=== PATIENT | female | born 1970 | race Caucasian/White ===

== ENCOUNTER 2018-09-08 11:44 | Emergency (ER) | payer MEDICAID, SELFPAY ==
[2018-09-08 11:45] VITALS: BP 139/81; PULSE 135; RESP 22; TEMP 36.1; O2SAT 98; BMI 28.7
--- NOTE | 2018-09-08 11:49 | ED.VISSUMM ---
- ER Visit Summary Date of Service: 09/08/18 Chief Complaint: Anxiety History of Present Illness: The patient is a 48 F who goes to the [facility]. She reports that she has a long-standing history of bipolar disorder and anxiety. She had been on Zyprexa and Klonopin in the past and that this is been helpful. States that recently she was started back on her Zyprexa and it seemed to help her straighten her thoughts out. However, she continued to be anxious. Because of that she was placed on Zoloft and has been taking this for approximately 3 weeks. She continued to have anxiety and saw her primary care physician who stopped the Zoloft and placed her on Prozac 2 days ago. Patient reports that her anxiety has been much worse since that time. Patient denies any suicidal or homicidal ideation. No auditory or visual hallucinations. Review of systems: General: No fever, chills, cold sweats. Cardiovascular: No chest pain, palpitations. Respiratory: No cough, shortness of breath, dyspnea on exertion. Gastrointestinal: No abdominal pain, nausea, vomiting, diarrhea, melena, or hematochezia. Genitourinary: No dysuria, frequency, hematuria. Skin: No rash. Neuro: No headache, numbness, weakness. Physical Examination: Vitals: Stable. Afebrile. General: Well-nourished and well-developed. Head: Normocephalic atraumatic. Neck: Supple, no lymphadenopathy. No JVD. Nontender. Cardiovascular: Tachycardic regular rhythm. No murmurs. Respiratory: No respiratory distress. Clear to auscultation bilaterally. Abdominal: Soft, nontender, nondistended, normal bowel sounds. No guarding, rebound, or peritoneal signs. Back: Nontender. Extremities: Nontender, no edema. Skin: Normal color, no rash. Neurologic: Alert and oriented ?3. Cranial nerves II through XII are intact. Normal strength and sensation. Mental status exam: Patient appears their stated age. Good posture and grooming. Good eye contact. Normal rate, volume, and latency of speech. No suicidal or homicidal ideation. No auditory or visual hallucinations. Flow of thought is logical. Insight and judgment is fair. Emergency Department Course and Treatment: Patient was given a dose of Ativan p.o. She is resting much more comfortably. Treatment Plan: Patient will be given a prescription for 8 Ativan. She is instructed to use these as needed until she is able to get back into see her doctor and have her anxiety further addressed. Return to the emergency department for any worsening symptoms. Disposition: To home in improved and stable condition. Impression: 1. Anxiety. 2. Depression. This note was generated with Giggemation software. It may contain incorrect words, spelling, and punctuation that were not noted in review of the chart prior to signing ED Disposition - Plan for ED Patient: Instructions: Anxiety Reaction Prescriptions: Lorazepam [Ativan] 1 mg PO TID PRN #8 tablet PRN Reason: Anxiety Referrals: Melinda Ness, SENIOR TALENT MANAGEMENT CONSULTANT-C [Primary Care Provider] - As soon as possible
[2018-09-08] MEDS: LORazepam 1 MG Tablet PO (12:09)
[2018-09-08 12:37] VITALS: PULSE 60
[2018-09-08 12:58] VITALS: BP 107/72; PULSE 69; RESP 18; O2SAT 99
== END 2018-09-08 12:59 | disposition home or self-care (01) ==
LOC: ED 12:13
PROVIDERS: Emergency Provider Emergency Medicine; Family Provider Nurse Practitioner Family; PCP Nurse Practitioner Family
DX: F41.9 Anxiety disorder, unspecified (principal); F32.9 Major depressive disorder, single episode, unspecified; F17.210 Nicotine dependence, cigarettes, uncomplicated
CPT/HCPCS: 99283

== ENCOUNTER 2018-09-22 15:52 | Emergency (ER) | payer MEDICAID, SELFPAY ==
[2018-09-22 15:57] VITALS: BP 121/84; PULSE 134; RESP 18; TEMP 36.6; O2SAT 98; BMI 27.3
--- NOTE | 2018-09-22 16:22 | NURSING ---
CALLED CRISIS, LEFT MESSAGE WITH ANSWERING NAME
[2018-09-22] MEDS: LORazepam 1 MG Tablet PO (16:31)
--- NOTE | 2018-09-22 17:11 | ED.VIS.GEN ---
History of Present Illness Chief Complaint: Anxiety Informant: Patient Onset: Month(s) Context: Gradual Onset Timing: Waxes and wanes Current Severity: Moderate Maximum Severity: Moderate Narrative: Patient has a history of bipolar disorder. It sounds like she been off of her medication for quite some time. Her doctor at the [facility] has been trying to restart medication that had worked for her previously. This did not work and she was switched to Prozac. Patient was seen here in late August due to continued anxiety. She was given a short course of Ativan to help with her symptoms. This lasted her for 5 days but she is been out of that medication for over a week. She states that her PCP increased her dose of Prozac and wanted her to be seen by a psychiatrist. She has not yet made an appointment and did not know if [facility] was making the apartment for her or not. She presents today with increased anxiety. She went to work today but was not able to complete her job and was brought in. Patient denies suicidal ideation. Past Medical History - Allergies and Home Meds Allergies/Adverse Reactions: Allergies No Known Allergies Allergy (Verified 09/22/18 15:53) Primary Care Physician: Melinda Ness NP-C [Primary Care Provider] - Prior records reviewed: Yes Past Medical History: - - Reviewed Surgical History: - - C-sections Lives: With Family Smoking Status: Current every day smoker Review of Systems General: Denies: Chills, Fever Eyes: Denies: Visual changes - bilaterally ENT: Denies: Bilateral ear pain Cardiovascular: Denies: Chest pain Respiratory: Denies: Dyspnea Gastrointestinal: Denies: Abdominal pain, Nausea, Vomiting Genitourinary: Denies: Dysuria Musculoskeletal: Denies: Myalgias Neurological: Denies: Headache Psych: Reports: Anxiety. Denies: Suicidal thoughts, Suicidal ideations Hematologic: Denies: Easy bruising Allergy: Denies: Uticaria Physical Exam Vital Signs/Narrative: Vital Signs Temp Pulse Resp BP Pulse Ox 09/22/18 15:57 97.9 F 134 H 18 121/84 H 98 Inital Vital Signs reviewed: Yes General: Well nourished, Well developed Head: Normocephalic ENT: Moist mucous membranes Neck: Supple Cardiovascular: Tachycardia Respiratory: No distress, CTA bilaterally Abdomen: Soft, Nontender Back: Nontender Extremities: Nontender Skin: Normal color Neurological: Alert, Oriented x3 Psychological: Normal affect Diagnostic/Tx/Re-eval - Medical Decision Making Patient was given 1 mg of p.o. Ativan. On repeat evaluation she is resting comfortably. Heart rate is 74. I spoke with Arabella from the counseling center. She was able to make an appointment for the patient tomorrow morning at 9:30 with Rhonda. Patient is agreeable to this. ED Disposition - Plan for ED Patient: Disposition: Home or Assisted Living Instructions: Anxiety Reaction Prescriptions: Lorazepam [Ativan] 1 mg PO TID PRN #10 tablet PRN Reason: Anxiety Referrals: Counseling,Center [GROUP OF PHYSICIANS] - 09/23/18 9:30 am Additional Instructions: You have an appointment tomorrow morning at the counseling center - 9:30 with Rhonda.
== END 2018-09-22 17:27 | disposition home or self-care (01) ==
PROVIDERS: Emergency Provider Emergency Medicine; Family Provider Nurse Practitioner Family; PCP Nurse Practitioner Family
DX: F41.9 Anxiety disorder, unspecified (principal); F31.9 Bipolar disorder, unspecified; F17.200 Nicotine dependence, unspecified, uncomplicated
CPT/HCPCS: 99283

== ENCOUNTER 2019-07-23 11:50 | Emergency (ER) | payer MEDICAID, SELFPAY ==
[2019-07-23 11:51] VITALS: BP 120/74; PULSE 89; RESP 18; TEMP 36.8; O2SAT 99; BMI 30.9
--- NOTE | 2019-07-23 12:57 | ED.DCSUM_ITS ---
- ER Visit Summary Date of Service: 07/23/19 Chief Complaint: Neck and back pain History of Present Illness: The patient is a 49 F who presents with neck and back pain that began yesterday. Patient states the pain is worse today. Patient describes the pain is sharp. Patient states the pain is over the right lower cervical paraspinal area and right upper thoracic paraspinal area. Patient denies any trauma or injury. Patient states the pain gets somewhat better with ice. Patient states the pain is worse with certain movements. Patient admits to some intermittent paresthesias down her right arm. Patient denies any weakness. Patient states she has a history of bone spurs in her neck. Physical Examination: Vital signs are stable. Patient is afebrile. Patient is in no acute distress. Musculoskeletal exam reveals tenderness and spasm of the right lower cervical paraspinal muscles and right upper thoracic paraspinal muscles as well as the right trapezius muscle. There is no midline tenderness. There is no bony crepitance or step-off. Range of motion was slightly limited in all motions of the cervical spine secondary to pain. Strength is 5/5 bilaterally in the upper extremities. There are no sensory deficits noted. There is good range of motion of the right shoulder. Radial pulses are equal bilaterally. Emergency Department Course and Treatment: Patient was given injections of Toradol and Norflex here. Patient was given prescriptions for Naprosyn and Flexeril. Patient was instructed to use ice to the area. Patient was instructed to follow-up with her primary care physician in 5 to 7 days. Patient understood and was agreeable with the plan. All questions were answered. Disposition: Discharge home Impression: 1. Acute cervical strain This note was generated with NavigatorMD dictation software. It may contain incorrect words, spelling, and punctuation that were not noted in review of the chart prior to signing ED Disposition - Plan for ED Patient: Disposition: Home or Assisted Living Diagnosis: Acute cervical myofascial strain Instructions: ED Sprain Strain Neck Prescriptions: cycloBENZAPRine HCl [Flexeril] 10 mg PO QHS PRN PRN #10 tab PRN Reason: Muscle Spasm Prescription Printed Naproxen [Naprosyn] 500 mg PO BID PRN #20 tab Prescription Printed Referrals: Melinda Ness, BENJAMIN-C [Primary Care Provider] - 5-7 Days
[2019-07-23] MEDS: Orphenadrine 60 MG/2 ML Ampul IM (13:16)
[2019-07-23] MEDS: Ketorolac 60 MG/2 ML Vial IM (13:17)
[2019-07-23 13:26] VITALS: BP 126/78; PULSE 88; RESP 14; O2SAT 98
== END 2019-07-23 13:27 | disposition home or self-care (01) ==
LOC: ED 13:17
PROVIDERS: Emergency Provider Emergency Medicine; PCP Nurse Practitioner Family
DX: S16.1XXA Strain of muscle, fascia and tendon at neck level, initial encounter (principal); X58.XXXA Exposure to other specified factors, initial encounter; Y92.9 Unspecified place or not applicable; Y99.9 Unspecified external cause status; F17.210 Nicotine dependence, cigarettes, uncomplicated; F31.9 Bipolar disorder, unspecified
CPT/HCPCS: 96372; 99283

== ENCOUNTER → 2019-11-17 13:04 | Outpatient (CLI) | payer MEDICAID, SELFPAY ==
--- NOTE | 2019-11-17 13:06 | RAD_ITS ---
STUDY: X-RAY - PELVIS AND LEFT HIP REASON FOR EXAM: Female, 49 years old. Left lateral hip pain x months -- NKI TECHNIQUE: 3 views of the pelvis and hip. COMPARISON: None. FINDINGS: There is a non-specific bowel gas pattern. Normal visualized soft tissue structures. Normal bilateral iliac wings, sacroiliac joints and visualized sacrum. Normal bilateral superior and inferior pubic rami. Normal pubic symphysis. Normal bilateral ischial tuberosities. Degenerative spur. Normal acetabulum. is severe articular joint space narrowing of the hip. RAD/HIP, UNI W/ Pelvis 2-3 Views IMPRESSION: Marked degree of joint space narrowing involving the left hip joint. Moderate degree of joint space narrowing of the right hip joint. Electronically Signed: Levon Cutler, at 15:54 EDT , Service support ,
== END ==
PROVIDERS: PCP Nurse Practitioner Family; Referring Provider Nurse Practitioner Family; Visit Provider Nurse Practitioner Family
DX: M25.552 Pain in left hip (principal)
CPT/HCPCS: 73502

== ENCOUNTER → 2020-06-08 10:01 | Outpatient (CLI) | payer MEDICAID, SELFPAY ==
[2019-12-08 13:57] VITALS: BMI 33.4
--- NOTE | 2020-06-08 10:17 | RAD_ITS ---
STUDY: X-RAY CHEST REASON FOR EXAM: Female, 49 years old. NICOTINE DEPENDENCE TECHNIQUE: PA and lateral views of the chest. COMPARISON: None. FINDINGS: The lungs are clear and expanded. There is no demonstrated pleural abnormality. Normal size heart. Normal mediastinum and [place]. Normal visualized pulmonary arteries. Normal visualized aortic arch and descending thoracic aorta. Normal visualized thoracic spine. Normal visualized ribs, clavicles, and shoulders. There is no demonstrated abnormality of the visualized soft tissue structures of the upper abdomen. RAD/Chest PA and Lateral IMPRESSION: No evidence of acute cardiopulmonary process. Electronically Signed: Junior Garg DO at 1:08 EDT , Service support ,
[2020-06-08 11:44] LABS: Absolute Lymphocyte Count 3.51 X10^3/uL (0.83-4.51); Basophil% 0.8 % (0-1); Eosinophil# 0.22 X10^3/uL; Eosinophils% 1.7 % (0-5); Hematocrit 47.1 % (37-47); Hemoglobin 15.2 g/dL (12.0-15.0); Lymphocyte # 3.51 X10^3/ul (0.83-4.51); Lymphocyte % 27.7 % (19-41); Mean Corp Hgb Conc 32.3 g/dL (32-36); Mean Corpuscular Volume 96.1 fL (81-99); Mean Platelet Vol. 11.5 fl (6.2-12.0); Monocyte# 0.81 X10^3/uL; Monocyte% 6.4 % (0-10); NRBC Flagged by Analyzer 0 % (0-5); Neutrophil # 7.96 X10^3/uL (2.7-7.7); Neutrophil % 62.8 % (47-70); Platelet Count 336 K/mm3 (150-450); RBC Distribution Width CV 12.7 % (11.6-14.6); White Blood Count 12.7 K/mm3 (4.4-11.0)
[2020-06-08 12:32] LABS: ALB/GLOB Ratio 1.1 RATIO (0.9-2.4); AST(SGOT) 11 U/L (15-37); Alanine Aminotransfer ALT/SGPT 31 U/L (13-56); Albumin, Serum 3.8 g/dL (3.2-5.0); Alkaline Phosphatase 109 U/L (45-117); Anion Gap 5 (5-15); BUN 17 mg/dL (7-18); BUN/Creat Ratio 19.3 RATIO (10-20); Calcium,Total 9.3 mg/dL (8.5-10.1); Chloride 102 mmol/L (98-107); Cholesterol 199 mg/dL (200); Creatinine, Serum 0.88 mg/dL (0.55-1.02); EST Glomerular Filtration Rate 72 mL/min (>60); Est Glom Filt Rate - Afr Amer 87 mL/min (>60); Globulin 3.5 g/dL (2.2-4.2); Glucose 112 mg/dL (74-106); High Density Lipoprotein 66 mg/dL; Potassium 3.8 mmol/L (3.5-5.1); Protein, Total 7.3 g/dL (6.4-8.2); Sodium Level 140 mmol/L (136-145); Thyroid Stim Hormone (TSH) 2.83 uIU/mL (0.358-3.74); Triglycerides 116 mg/dL; Very Low Density Lipoprotein 23 mg/dL (5-40)
[2020-06-10 17:01] LABS: Vitamin D 1,25-Dihydroxy 34.4 pg/mL (19.9-79.3)
== END ==
LOC: LAB 10:10 → RAD 10:15
DX: F17.200 Nicotine dependence, unspecified, uncomplicated (principal)
CPT/HCPCS: 36415; 71046; 80053; 80061; 82652; 84443; 85025

== ENCOUNTER → 2020-11-23 15:12 | Outpatient (CLI) | payer MEDICAID, SELFPAY ==
--- NOTE | 2020-11-23 15:17 | BI_ITS ---
MAMMOGRAPHY - BILATERAL SCREENING 3-D TOMOSYNTHESIS REASON FOR EXAM: Female, 50 years old. SCREENING PERTINENT HISTORY: No significant family history. TECHNIQUE: 2-D mammograms and 3-D Tomosynthesis of the breast (s) were performed. CAD was performed. COMPARISON: None. FINDINGS: The breast composition is heterogeneously dense that can obscure small breast masses. Scattered benign calcifications are seen. No dominant mass. No suspicious calcifications right breast. Grouped punctate calcifications in the upper outer quadrant left breast and magnification views are recommended.. No architectural distortion is identified. There is no skin thickening or retraction. BI/SCRN MAMM (CAD)W/COOKIE BILAT IMPRESSION: Grouped punctate calcifications upper outer quadrant of the left breast and magnification views recommended for further evaluation.. ASSESSMENT CATEGORY: BIRADS Category 0: Incomplete. Need additional imaging evaluation as above. A letter regarding these results will be sent to the patient by the facility within 30 days. FOLLOW UP RECOMMENDATION: Additional imaging recommended as above. (E) Approximately 10% of breast cancers are not detected by mammography. A normal mammogram should not delay biopsy of a clinically suspicious abnormality. Electronically Signed: Azar Strickland MD at 12:16 EDT Tel , Service support ,
--- NOTE | 2020-11-23 15:22 | BD_ITS ---
STUDY: DUAL ENERGY X-RAY ABSORPTIOMETRY / DXA REASON FOR EXAM: Female, 50 years old. 733.00OsteoporosisBONE DENSITY REASON FOR EXAM TECHNIQUE: Bone Mineral Density (BMD) measurements of lumbar spine and bilateral hips were obtained. COMPARISON: None. FINDINGS: Lumbar Spine (L1-L4): g/cm2 (1.008) / T-score (-0.4) / Z-score (0.5) Findings are suggestive of normal bone density with a low fracture risk. Left Femur Total: g/cm2 (0.810) / T-score (-1.1) / Z-score (-0.5) Left Femoral Neck: g/cm2 (0.746) / T-score (-0.9) / Z-score (0.0) Right Femur Total: g/cm2 (0.901) / T-score (-0.3) / Z-score (0.2) Right Femoral Neck: g/cm2 (0.781) / T-score (-0.6) / Z-score (0.3) BD/Dexa Bone Density Study IMPRESSION: The patient is considered osteopenic as outlined below according to World Ghanshyam Organization (WHO) criteria with a low fracture risk. Reference Information: The T-score is the number of standard deviations above or below the standard which is normal for young adults at their peak bone mineral density. The World Health Organization (WHO) interprets the T-scores as follows: Above -1 Normal bone density Between -1 and -2.5 Osteopenia Equal to / or below -2.5 Osteoporosis As a practical clinical guideline, osteopenia may be graded as follows: Mild -1 through -1.5 Moderate -1.6 through -2.0 Severe -2.1 through -2.4 The Z-score is the number of standard deviations above or below age-matched controls. A Z-score of less than -1.5 would be considered abnormal. References: 1. NIH Osteoporosis and Related Bone Diseases www osteo.org 2. International Society for Clinical Densitometry www iscd.org 3. National Osteoporosis Foundation www nof.org Electronically Signed: Levon Cutler MD at 15:26 EDT , Service support ,
== END ==
PROVIDERS: Referring Provider Nurse Practitioner Adult Health; Visit Provider Nurse Practitioner Adult Health
DX: Z12.31 Encounter for screening mammogram for malignant neoplasm of breast (principal); Z13.820 Encounter for screening for osteoporosis
CPT/HCPCS: 77063; 77067; 77080

== ENCOUNTER 2020-11-24 17:58 | Emergency (ER) | payer MEDICAID, SELFPAY ==
[2020-11-24 17:59] VITALS: BP 133/106; PULSE 116; RESP 20; TEMP 36.7; O2SAT 96; BMI 38.0
--- NOTE | 2020-11-24 18:42 | ED.VIS.LOWEX ---
HPI History of Present Illness HPI Narrative: Patient presents with left hip pain that has been constant for the past year. Patient states it is gotten worse over the last 2 weeks. Patient denies any specific trauma or injury. Patient states she has some arthritis in that hip and needs a hip replacement. Patient states she is waiting on insurance to approve procedures for her left hip. Patient denies any paresthesias or weakness. Patient denies any other injuries. Chief Complaint: Lower Extremity Injury Informant: patient Onset/Context/Timing Onset: Weeks (Worse over the last 2 weeks) and - (1 year) Context: Gradual Onset Timing: Continuous Quality of Pain: Sharp and Aching Worsened by: Movement Relieved by: Stretching Associated Symptoms Associated Symptoms: Positive for Weakness; Negative for Parasthesia and Loss of Funtion PFSH PFSH Medical History Bipolar 1 disorder Home Medications olanzapine 15 mg PO DAILY 07/23/19 [History Last Taken Unknown] lamotrigine 100 mg tablet 100 mg PO DAILY tab 07/23/20 [History Last Taken Unknown] diclofenac sodium 75 mg tablet,delayed release 75 mg PO BID tab 10/27/20 [History Last Taken Unknown] methylprednisolone 4 mg tablets in a dose pack See Rx Instructions PO PER PKG DIR #21 tab 10/27/20 [Rx Last Taken Unknown] tramadol 50 mg PO Q4H PRN PRN 3 Days #20 tab 11/24/20 [Rx Last Taken Unknown] Allergy/AdvReac Type Severity Reaction Status Date / Time No Known Allergies Allergy Verified 10/27/20 13:04 Surgical History H/O: Social History Smoking Status: Current every day smoker tobacco type: cigarettes alcohol intake: never ROS ROS ED Constitutional Constitutional ED: Denies chills or fever(s) Eyes Eyes: Denies blurry vision or change in vision ENT ENT ED: Denies rhinorrhea or sore throat Cardiovascular Cardiovascular: Denies chest pain or palpitations Respiratory/Chest Respiratory/Chest: Denies cough or dyspnea Gastrointestinal Gastrointestinal: Denies nausea or vomiting Genitourinary Genitourinary ED: Denies dysuria or hematuria Musculoskeletal Musculoskeletal: Denies back pain or neck pain Integumentary Denies abscess or rash Neurologic Neurologic: Denies headache(s) or weakness Allergic/Immunologic Allergic/Immunologic ED: Denies mouth swelling or urticaria EXAM Physical Exam Const Vital Signs: 11/24/20 17:59 Temperature 98.1 F Temperature Source Temporal Pulse Rate 116 H Respiratory Rate 20 H Blood Pressure 133/106 H Blood Pressure Mean 115 Pulse Ox 96 Oxygen Delivery Method Room Air Positive well nourished, well developed and obese General Appearance ED: well developed Nutritional Appearance: obese HEENT Reports moist mucous membranes Neck full ROM and supple Extremity Extremity Narrative: There is tenderness over the posterior and lateral aspects of the left hip. There is no obvious deformity noted. Range of motion was limited in internal and external rotation of the left hip secondary to pain. Strength is 5/5 bilaterally in the lower extremities. There are no sensory deficits noted. Posterior tibial pulses are equal bilaterally. Neuro oriented x3, CN's II-XII intact bilaterally, moves all extremities and no sensory deficits noted Sensorium / Orientation: alert Motor Exam: strength 5/5 throughout Psych mental status grossly normal MDM MDM MDM Narrative Medical decision making narrative: Patient was given injection of morphine here. Patient was given a prescription for tramadol. Patient was instructed use ice to the area. Patient was instructed to follow-up with her primary care physician and pain management physician in 5 to 7 days. Patient understood and was agreeable with the plan. All questions were answered. Discharge Plan Triage Chief Complaint: Lower Extremity Injury ED Provider: Yeison Camarena Dx/Rx/DC Orders Clinical Impression: Acute pain of left hip, Osteoarthritis of left hip Instructions: ED Hip Strain, ED Osteoarthritis Prescriptions: New tramadol 50 MG tablet 50 mg PO Q4H PRN PRN (Reason: Pain) 3 Days Qty: 20 RF: 0 No Action lamotrigine 100 mg tablet 100 mg PO DAILY RF: 0 diclofenac sodium 75 mg tablet,delayed release (DR/EC) 75 mg PO BID RF: 0 methylprednisolone [Medrol (Marshal)] 4 mg tablets,dose pack See Rx Instructions PO PER PKG DIR Qty: 21 RF: 0 olanzapine 15 MG tablet 15 mg PO DAILY RF: 0 [facility] - 5-7 Days Disposition Disposition: Home, Self Care
[2020-11-24] MEDS: Morphine 4 MG/ML Syringe IM (19:06)
== END 2020-11-24 19:22 | disposition home or self-care (01) ==
PROVIDERS: Emergency Provider Emergency Medicine
DX: M16.12 Unilateral primary osteoarthritis, left hip (principal); M25.552 Pain in left hip; E66.9 Obesity, unspecified; F31.9 Bipolar disorder, unspecified; F17.210 Nicotine dependence, cigarettes, uncomplicated
CPT/HCPCS: 96372; 99282

== ENCOUNTER → 2020-12-06 08:48 | Outpatient (CLI) | payer MEDICAID, SELFPAY ==
--- NOTE | 2020-12-06 08:52 | BI_ITS ---
MAMMOGRAPHY - UNILATERAL DIAGNOSTIC: LEFT BREAST REASON FOR EXAM: Female, 50 years old. Abnormal screening mammogram. PERTINENT HISTORY: Comparison is made with prior mammogram dated 11/23/2020. TECHNIQUE: Magnification spot views of the left breast in the mediolateral oblique and craniocaudad projections were obtained. CAD: Full Field Digital Mammography with Computer Added Detection was performed. COMPARISON: Comparison is made with prior mammogram dated 11/23/2020. FINDINGS: Breast Composition: The breasts are heterogeneously dense, which may obscure small masses. A group of microcalcifications are seen in the slightly upper lateral aspect of the left breast. Biopsy recommended. No other significant abnormalities are identified. BI/DIAG MAMM W/CAD, UNILAT IMPRESSION: Microcalcifications are once again seen in the upper-outer quadrant of the left breast. Biopsy recommended. ASSESSMENT CATEGORY: BIRADS Category 4: Suspicious - Biopsy Should Be Considered. A letter regarding these results will be sent to the patient by the facility within 30 days. Approximately 10% of breast cancers are not detected by mammography. A normal mammogram should not delay biopsy of a clinically suspicious abnormality. Electronically Signed: Levon Cutler MD at 9:44 EDT , Service support ,
== END ==
PROVIDERS: Referring Provider Nurse Practitioner Adult Health; Visit Provider Nurse Practitioner Adult Health
DX: N64.89 Other specified disorders of breast (principal); R92.8 Other abnormal and inconclusive findings on diagnostic imaging of breast
CPT/HCPCS: 77065

== ENCOUNTER → 2020-12-14 10:24 | Outpatient (CLI) | payer MEDICAID, SELFPAY ==
--- NOTE | 2020-12-14 11:00 | BRBX_PTH ---
PATIENT: AURELIO THORNTON LOC: [facility] U#:[id number] AGE/SX: 54/F ROOM: RE12/14/[address]: Dr. Pranav Bellamy MD : 1970 BED: DIS: SPEC #: [id number] RECD: 12/14/20 12:03 STATUS: RICHARD BANDAR #: [id number] SIN: 12/14/20 11:[address]: Pranav Bellamy DEPT: SURGICAL PATHOLOGY RECD BY: Ugo Benavidez ENTERED: 12/14/20 13:35 SP TYPE: BREAST BX OTHR DR: [facility] Tissues: Left breast, NOS Procedures: Surgery Specimen Level IV HEADER OPERATION: Left stereotactic breast biopsy PRE-OP DIAGNOSIS: Left upper lateral breast microcalcifications TISSUE SUBMITTED: Left breast core tissue ISCHEMIC TIME: 1 minute FIXATION TIME: 8.5 hours MICROSCOPIC DIAGNOSIS Left breast, upper lateral microcalcifications, stereotactic core biopsy: Focal mild intraductal hyperplasia without atypia. Frequent microcalcifications. Negative for malignancy. See comment. YOEL:jose guadalupe 12/15/2020 COMMENT Correlation with clinical, radiologic findings and appropriate follow up are necessary. MICROSCOPIC DESCRIPTION Slides are reviewed. GROSS DESCRIPTION Received in fixative is one container labeled with the patient's name and designated left breast. The specimen consists of multiple elongated fragments of estes-yellow fibroadipose tissue that in aggregate measure 7 x 3 x 0.3 cm. The entire specimen is submitted in three cassettes. / YOEL:jose guadalupe 12/14/20 TC:5 CPT: 97758
--- NOTE | 2020-12-14 12:01 | PCM.OP.PRO ---
Assessment & Plan Assessment/Plan (1) Abnormal finding on mammography, microcalcification: Procedure Report Date of Procedure: 12/14/20 Procedure: Stereotactic biopsy of left breast upper outer quadrant microcalcifications Procedure in detail: After obtaining written and verbal consent and reviewing the details of the procedure, patient was positioned on the mammography table. Undercover Cop image was performed to identify the location of microcalcifications. Of note, there were some macro calcifications in the area but that was the microcalcifications that were ultimately targeted. Stereo images were obtained at plus and -15 degrees. With these images, the biopsy site was targeted just below the area to be sampled. Then the biopsy site was anesthetized with local anesthetic both at the skin and deeply along the ventral biopsy tract. A skin maral was made with an 11 blade to accommodate the 8 Cambodian mammotome core needle. The needle was advanced into this opening and the needle was fired. Post?firing images confirmed that we are in the vicinity of the calcifications. We then obtained 6 biopsies along the 180 degrees superior to the needle insertion site. The cores were then x-rayed and we confirmed the presence of microcalcifications in the second core. Satisfied with this result, I placed a clip at the biopsy site and confirmed it presents with another x-ray. This concluded the biopsy and the patient was allowed to sit upright while manual pressure was applied externally. She tolerated the procedure well without any apparent complication. She was given post-? procedure care instructions and we will follow up once pathology has resulted. EBL: Less than 10 mL Procedures Integumentary [id number]: [id number] [facility]
== END ==
PROVIDERS: Referring Provider Surgery; Visit Provider Surgery
DX: N62 Hypertrophy of breast (principal); R92.0 Mammographic microcalcification found on diagnostic imaging of breast; F41.9 Anxiety disorder, unspecified; F31.9 Bipolar disorder, unspecified; F17.210 Nicotine dependence, cigarettes, uncomplicated; E66.3 Overweight; Z68.38 Body mass index [BMI] 38.0-38.9, adult; Z79.899 Other long term (current) drug therapy
CPT/HCPCS: 19081; 88305; J7050; A4648

== ENCOUNTER 2021-03-11 10:42 | Outpatient (CLI) | payer MEDICAID, SELFPAY ==
--- NOTE | 2021-03-11 08:51 | EKG12_ITS ---
Test Reason : PRE OP Blood Pressure : / mmHG Vent. Rate : 103 BPM Atrial Rate : 103 BPM P-R Int : 132 ms QRS Dur : 064 ms QT Int : 332 ms P-R-T Axes : 071 053 057 degrees QTc Int : 434 ms Sinus tachycardia Biatrial enlargement Abnormal ECG Confirmed by DAVID STRONG, NUBIA ([id number]), proposal editor DENVER VITAL ([id number]) on 03/14/2021 9:42:50 AM Referred By: Mega Murphy Confirmed By:NUBIA HERNANDEZ MD
[2021-03-11 10:02] LABS: Absolute Lymphocyte Count 1.42 X10^3/uL (0.83-4.51); Absolute Neutrophil Count 4.4 X10^3/uL (2.0-7.7); Basophil% 1.5 % (0-1); Eosinophil# 0.26 X10^3/uL; Hematocrit 44.2 % (37-47); Hemoglobin 14.2 g/dL (12.0-15.0); Lymphocyte # 1.42 X10^3/ul (0.83-4.51); Lymphocyte % 21.6 % (19-41); Mean Corp Hgb Conc 32.1 g/dL (32-36); Mean Corpuscular Volume 96.5 fL (81-99); Mean Platelet Vol. 11.8 fl (6.2-12.0); Monocyte# 0.43 X10^3/uL; Monocyte% 6.5 % (0-10); NRBC Flagged by Analyzer 0 % (0-5); Neutrophil # 4.35 X10^3/uL (2.7-7.7); Neutrophil % 66.1 % (47-70); Platelet Count 264 K/mm3 (150-450); RBC Distribution Width CV 12.5 % (11.6-14.6); RBC Distribution Width SD 44.4 fl (35.1-43.9); Red Blood Count 4.58 M/mm3 (4.2-5.4); White Blood Count 6.6 K/mm3 (4.4-11.0)
[2021-03-11 10:17] LABS: Partial Thromboplast Time 29.4 Seconds (24.1-36.2)
[2021-03-11 10:21] LABS: International Normalized Ratio 0.9; Prothrombin Time (Protime)PT. 11.6 SECONDS (11.7-14.9)
[2021-03-11 10:32] LABS: Anion Gap 2 (5-15); BUN 13 mg/dL (7-18); BUN/Creat Ratio 14.4 RATIO (10-20); Calcium,Total 9.4 mg/dL (8.5-10.1); Chloride 106 mmol/L (98-107); EST Glomerular Filtration Rate 70 mL/min (>60); Est Glom Filt Rate - Afr Amer 84 mL/min (>60); Glucose 191 mg/dL (74-106); Potassium 4.3 mmol/L (3.5-5.1); Sodium Level 139 mmol/L (136-145)
[2021-03-22 20:50] LABS: Cotinine Screen Blood 100.4 ng/mL (.); Fructosamine 234 umol/L (0-285); Nicotine Blood 6.7 ng/mL (.)
== END 2021-03-11 23:59 | disposition home or self-care (01) ==
PROVIDERS: Anesthesiology; Referring Provider Orthopaedic Surgery; Visit Provider Orthopaedic Surgery
DX: Z01.818 Encounter for other preprocedural examination (principal); R94.31 Abnormal electrocardiogram [ECG] [EKG]; R00.0 Tachycardia, unspecified
CPT/HCPCS: 36415; 80048; 80323; 82985; 83735; 85025; 85610; 85730; 86850; 86900; 86901; 93005; J7120

== ENCOUNTER 2021-03-17 17:46 | Outpatient (CLI) | payer MEDICAID, SELFPAY ==
--- NOTE | 2021-03-17 17:52 | CT_ITS ---
INDICATION: templating for left LARRY EXAMINATION: CT Lower Extremity W/O Contrast Injection TECHNIQUE: Helically acquired images were obtained of the bilateral hips and knees. 2-D reformats were performed by the technologist. A radiation dose optimization technique was used for this scan. IV Contrast dosage and agent: None. COMPARISON: None. FINDINGS: BONES AND ALIGNMENT: No acute fractures. The alignment is anatomic. JOINTS: Severe asymmetric joint space narrowing of the left hip with subchondral sclerosis and subchondral cystic changes. SOFT TISSUES: No significant soft tissue swelling. CT/Extremity Lower without Contra IMPRESSION: No acute abnormalities. Severe left hip degenerative arthrosis. Electronically Signed: Ezequiel Hawkins MD at 16:49 EST ,
== END 2021-03-17 23:59 | disposition short-term general hospital (02) ==
LOC: CT 17:47
PROVIDERS: Visit Provider Orthopaedic Surgery
DX: M16.12 Unilateral primary osteoarthritis, left hip (principal)
CPT/HCPCS: 73700

== ENCOUNTER → 2022-11-21 | Outpatient (CLI) | payer MEDICAID, SELFPAY ==
[2022-11-21 09:46] LABS: Hematocrit 46.8 % (37-47); Mean Corp Hgb Conc 32.1 g/dL (32-36); Mean Corpuscular Hgb 31.5 pg (27.0-32.0); Mean Corpuscular Volume 98.3 fL (81-99); Mean Platelet Vol. 12.3 fl (6.2-12.0); Platelet Count 220 K/mm3 (150-450); RBC Distribution Width CV 12.9 % (11.6-14.6); RBC Distribution Width SD 46.9 fl (35.1-43.9); Red Blood Count 4.76 M/mm3 (4.2-5.4); White Blood Count 8.7 K/mm3 (4.4-11.0)
[2022-11-21 10:40] LABS: ALB/GLOB Ratio 1.1 RATIO (0.9-2.4); AST(SGOT) 24 U/L (15-37); Alanine Aminotransfer ALT/SGPT 31 U/L (13-56); Albumin, Serum 3.8 g/dL (3.2-5.0); Alkaline Phosphatase 102 U/L (45-117); Anion Gap 3 (5-15); BUN 11 mg/dL (7-18); BUN/Creat Ratio 11.9 RATIO (10-20); Calcium,Total 9.3 mg/dL (8.5-10.1); Chloride 108 mmol/L (98-107); Creatinine, Serum 0.93 mg/dL (0.55-1.02); EST Glomerular Filtration Rate 67 mL/min (>60); Est Glom Filt Rate - Afr Amer 81 mL/min (>60); Globulin 3.5 g/dL (2.2-4.2); Glucose 156 mg/dL (74-106); Potassium 4.6 mmol/L (3.5-5.1); Protein, Total 7.3 g/dL (6.4-8.2); Sodium Level 140 mmol/L (136-145)
[2022-11-21 11:15] LABS: Hemoglobin A1c 5.9 % (3.8-5.6)
== END | disposition home or self-care (01) ==
DX: E11.9 Type 2 diabetes mellitus without complications (principal)
CPT/HCPCS: 36415; 80053; 83036; 85027

== ENCOUNTER 2023-04-14 19:17 | Emergency (ER) | payer MEDICAID, SELFPAY ==
[2023-04-14 19:17] VITALS: BP 197/119; PULSE 124; RESP 18; TEMP 36.6; O2SAT 93; BMI 36.8
--- NOTE | 2023-04-14 19:37 | ED.VIS.LOWEX ---
HPI History of Present Illness HPI Narrative: 52-year-old female history of chronic left hip pain and arthritis to the hip. She is supposed to get hip replacement surgery but they wanted to quit smoking first which she been unable to accomplish. States she was in her normal state of health today. Was sitting down went to get up and twisted and had pain in her left hip. Denies any fall injury or trauma. No fever, redness or swelling. She has had similar episodes like this before. Chief Complaint: Lower Extremity Injury Informant: patient Occured/Mechanism Mechanism/Context: No assault, No injury and No blunt trauma Onset/Context/Timing Onset: Today Context: Sudden Onset Timing: Continuous Quality of Pain: Sharp Current Severity: Moderate Maximum Severity: Moderate Associated Symptoms Associated Symptoms: Negative for Parasthesia, Weakness or Loss of Funtion Narrative Narrative: 52-year-old female with chronic degenerative arthritis to her left hip with acute pain today after twisting. Prior similar symptoms: Yes Recent Illness/Hospitalization: No PFSH PFSH Medical History Abnormal finding on mammography, microcalcification Anxiety Anxiety and depression Arthritis Asthma Bipolar 1 disorder Cellulitis and abscess of hand COPD (chronic obstructive pulmonary disease) Depression Former smoker History of pain when walking History of steroid therapy Infected joint of finger Injury of head and neck Obesity Open wound of finger with complication Smoker Tobacco use Wears dentures Wears glasses Home Medications lamotrigine 100 mg tablet 100 mg PO DAILY 07/23/20 [History Last Taken Unknown] oxycodone-acetaminophen 5 mg-325 mg tablet (Percocet) 1 tab PO Q4H PRN pain 3 days #10 tabs 04/14/23 [Rx Last Taken Unknown] Allergy/AdvReac Type Severity Reaction Status Date / Time No Known Allergies Allergy Verified 04/14/23 19:19 Family History Father Diabetes Heart disease Surgical History H/O: History of tubal ligation Social History Smoking Status: Current every day smoker tobacco type: cigarettes alcohol intake: never ROS ROS ED ROS Narrative Denies recent illness. Denies any fever or, redness or swelling to her left hip. Review of Systems ROS Unobtainable: Denies due to encephalopathy Constitutional Constitutional ED: Denies chills or fever(s) Eyes Eyes: Denies blurry vision ENT ENT ED: Denies ear pain Cardiovascular Cardiovascular: Denies chest pain Respiratory/Chest Respiratory/Chest: Denies cough or dyspnea Gastrointestinal Gastrointestinal: Denies abdominal pain Genitourinary Genitourinary ED: Denies dysuria or hematuria Musculoskeletal Musculoskeletal: Denies arthralgias Integumentary Denies abscess or Abrasions Neurologic Neurologic: Denies headache(s) Psychiatric Psychiatric: Denies anxiety or depression Endocrine Endocrinology: Denies polydipsia Hematologic/Lymphatic Hematologic/Lymphatic: Denies easy bleeding, easy bruising or lymphadenopathy Allergic/Immunologic Allergic/Immunologic ED: Reports urticaria; Denies mouth swelling or tongue swelling EXAM Physical Exam Narrative Exam Narrative: 52-year-old female vital signs stable although she is tachycardic and elevated blood pressure I think from pain from her hip. Does not look septic or toxic. H EENT exam unremarkable. Neck nontender. Lungs clear except for a few scattered wheezes she is a chronic smoker. Heart tachycardic rate of 110 no murmur. Chest wall nontender. Abdomen soft nontender. Moving all 4 extremities. She has pain in her left hip. There is no redness or swelling. There is no signs of a septic joint. She can flex and extend at has increased pain. She can flex and extend her left knee and ankle and foot. There is no edema in the calf. Right lower extremities unremarkable upper extremities unremarkable. Back nontender. Neurologically she is awake and alert with no focal motor deficits. Left lower extremity is neurovascularly intact. Const Vital Signs: 04/14/23 19:17 Temperature 98 F Temperature Source Temporal Pulse Rate 124 H Respiratory Rate 18 Blood Pressure 197/119 H Blood Pressure Mean 145 Pulse Ox 93 Oxygen Delivery Method Room Air Positive well nourished and well developed; Negative for cachectic, contractures or unkempt General Appearance ED: well developed and NAD; Negative for unkempt, cachectic or contractures Nutritional Appearance: Negative for cachectic HEENT Reports moist mucous membranes normocephalic and atraumatic; Negative for trauma or tenderness Eyes PERRL General Eye ED: Negative for other Neck full ROM and supple Thyroid: Negative for tender Lymph Lymphatic: Negative for other Chest Wall inspection of chest normal and palpation of chest normal Chest: Negative for other Resp normal respiratory effort, no retractions and clear to auscultation bilaterally Effort and Inspection: Negative for pain with movement Auscultation: Negative for rales, rhonchi, wheezes or diminished lung sounds Cardio regular rhythm, S1 normal heart sound, S2 normal heart sound and no murmurs; Negative for regular rate Rate: tachycardic Rhythm: Negative for abnormal rhythm Bruits: Negative for other GI non-tender, non-distended and no masses Inspection: Negative for abdominal distention Auscultation: normoactive bowel sounds Palpation: soft; Negative for tender, guarding or rebound tenderness present Back/Spine no CVA tenderness General Back: Negative for CVA tenderness Cervical Spine: Negative for cervical spine tenderness Thoracic Spine / Upper Back: Negative for thoracic spinal tenderness Lumbar Spine / Lower Back: Negative for lumbar spinal tenderness Extremity normal to inspection and full ROM Extremity Narrative: Pain left hip. No redness or swelling. No septic joint. No shortening or deformity. No internal or external rotation. Able to do normal range of motion with mild discomfort. General Extremety ED: Negative for cyanosis or edema General Extremity: Negative for cyanosis or edema Neuro oriented x3, CN's II-XII intact bilaterally, moves all extremities and no sensory deficits noted Sensorium / Orientation: alert, oriented to person, oriented to place and oriented to time; Negative for orientation impaired, confused, lethargic or stuporous Motor Exam: strength 5/5 throughout Psych mental status grossly normal Appearance: Negative for unkempt Speech: No other Mood & Affect: Negative for anxious Skin no wounds Lesions: no lesions Rashes: no rashes Trauma: Negative for abrasion, laceration or puncture MDM MDM MDM Narrative Medical decision making narrative: 52-year-old with acute on chronic left hip pain with degenerative arthritis. Vital signs with elevated blood pressure and heart rate I think secondary to pain. Percocet p.o. x 2 for pain x-ray of the left hip and pelvis. Repeat exam patient doing better at 8:17 PM. She and I went over her x-ray. There is severe arthritis but no fracture or dislocation. She will be written for 10 Percocet for pain. Given ibuprofen here prior to discharge along with a 2 Percocet she already received. And outpatient follow-up with her orthopedic physician Dr. Ghosh. History & Record Review Discussion w/independent historian: Patient Additional record(s) reviewed:: Prior inpatient record, Prior outpatient record, Prior ED visit and Prior labs Radiography Diagnostic Testing: Left hip and pelvis x-ray 3 views interpreted by myself shows shows no acute fracture or dislocation. There is severe degenerative arthritis of the left hip. I went over the x-rays with the patient. Discharge Plan Triage Chief Complaint: Lower Extremity Injury ED Provider: Larry Vu Dx/Rx/DC Orders Clinical Impression: Osteoarthritis of left hip, Acute pain of left hip Instructions: ED Osteoarthritis Prescriptions: New oxycodone-acetaminophen [Percocet] 5-325 mg tablet 1 tab PO Q4H PRN (Reason: pain) 3 Days Qty: 10 0RF No Action lamotrigine 100 mg tablet 100 mg PO DAILY Patient Comments: TAKE 1 TABLET BY MOUTH EVERY DAY Primary Care Provider: [facility] Valorie Sherman Referrals: Mega Murphy DO [Med Staff - Active Staff] - As soon as possible [facility],Valorie Hill [Primary Care Provider] - Activity Restrictions/Additional Instructions: Pain in your left hip due to the arthritis. Motrin for pain and decrease inflammation. Percocet for more severe pain. Call and follow-up with your orthopedic doctor. Disposition Disposition: Home, Self Care
[2023-04-14] MEDS: Oxycodone/Apap 5/325 Tablet PO (19:44)
--- NOTE | 2023-04-14 20:00 | RAD_ITS ---
STUDY: X-RAY - PELVIS AND LEFT HIP REASON FOR EXAM: Female, 52 years old. atraumatic left hip pain TECHNIQUE: 3 views of the pelvis and hip. COMPARISON: None. FINDINGS: There is a non-specific bowel gas pattern. Normal visualized soft tissue structures. Normal bilateral iliac wings, sacroiliac joints and visualized sacrum. Normal bilateral superior and inferior pubic rami. Normal pubic symphysis. Normal bilateral ischial tuberosities. There are osteoarthritic changes of the femoral head with marginal osteophyte formation and subcortical cysts. There is cortical sclerosis with sub-cortical cyst formation of the acetabulum. is severe articular joint space narrowing of the hip. RAD/HIP, UNI W/ Pelvis 2-3 Views IMPRESSION: Severe left hip osteoarthrosis. Electronically Signed: Luis Garcia MD ([place]) at 20:34 EST ,
--- OUTSIDE RECORDS SUMMARY | 2023-04-14 20:22 | XMS RPT_ITS | CCD ---
Author Name Unknown Address [address] [place] [address] Organization [facility] Results Test Name Value Interpretation Reference Range Facil ity Summary Purpose Family History No Family History Records Found Advance Directives No Advanced Directives Records Found Additional Source Comments INFORMATION SOURCE (unrecogn ized section and content) FOR RECORDS PERTAINING TO PATIENTS WHO ARE OR HAVE BEEN ENROLLED IN A CHEMICAL DEPENDENCY/SUBSTANCEABUSE PROGRAM, SOME INFORMATION MAY BE OMITTED. This clinical summary was aggregated from multiple sources. Caution should be exercised in using it in the provision of clinical care. This summary normalizes information from multiple sources, and as a consequence, information in this document may materially change the coding, format and clinical context of patient data. In addition, data may be omitted in some cases. CLINICAL DECISIONS SHOULD BE BASED ON THE PRIMARY CLINICAL RECORDS. [employer] provides no warranty or guarantee of the accuracy or completeness of information in this document.
[2023-04-14] MEDS: Ibuprofen 600 MG Tablet PO (20:28)
[2023-04-14 20:29] VITALS: BP 139/95; PULSE 82; RESP 16; TEMP 36.6; O2SAT 94
== END 2023-04-14 20:33 | disposition home or self-care (01) ==
PROVIDERS: Emergency Provider Emergency Medicine; Visit Provider Emergency Medicine
DX: M25.552 Pain in left hip (principal); J44.9 Chronic obstructive pulmonary disease, unspecified; F31.9 Bipolar disorder, unspecified; M16.12 Unilateral primary osteoarthritis, left hip; Z79.899 Other long term (current) drug therapy; F17.210 Nicotine dependence, cigarettes, uncomplicated; X50.1XXA Overexertion from prolonged static or awkward postures, initial encounter; Y93.89 Activity, other specified
CPT/HCPCS: 73502; 99283